=== PATIENT | female | born 1995 | race American Indian/Alaskan Native ===

== ENCOUNTER 2020-08-19 17:03 | Emergency (ER) | payer SELFPAY | END 2020-08-20 07:29 | LOC: ED 17:03 | DX: R11.2 Nausea with vomiting, unspecified (principal); Z53.21 Procedure and treatment not carried out due to patient leaving prior to being seen by health care provider ==

== ENCOUNTER 2021-06-04 06:21 | Emergency (ER) | payer SELFPAY ==
[2021-06-04] MEDS ORDERED: ONDANSETRON 4 MG ODT TAB PO ONE (06:28)
--- NOTE | 2021-06-04 06:29 | Emergency Department Report ---
ED Abdominal Pain HPI - General Stated Complaint: COUGH VOMITING SHAD Time Seen by Provider: 06/04/21 06:28 - History of Present Illness Initial Comments: Patient presents with a 1 to 2-day history of GI upset and nausea and vomiting. She has not been able to keep anything down for the last day. She denies hematemesis or coffee-ground emesis. She has vomited yellow stomach acid. She states that she called an ambulance yesterday and was told "do not go to the hospital. You will be fine." She states that this morning, she was not fine and decided to come here of her own accord. She does report having a cough producing brownish phlegm over the last day as well. She has no subjective fevers or chills. There is no diarrhea. She has no sick contacts. She has not been out of the country. Patient has not had any antibiotic exposure. - Related Data Previous Rx's Medication Instructions Recorded Last Taken Type Hyoscyamine Subl [Levsin Sl 0.125 0.125 mg SL Q6HR PRN #20 tab 06/04/21 Unknown Rx TAB] Ondansetron [Zofran ODT TAB] 8 mg PO Q8HR PRN #20 tab.rapdis 06/04/21 Unknown Rx Allergies Allergy/AdvReac Type Severity Reaction Status Date / Time No Known Allergies Allergy Unverified 06/04/21 06:51 ED Review of Systems ROS: Stated complaint: COUGH VOMITING SHAD Other details as noted in HPI Comment: All other systems reviewed and negative Constitutional: denies: fever Eyes: denies: eye pain ENT: denies: throat pain Respiratory: see HPI Cardiovascular: denies: chest pain Endocrine: denies: unexplained weight loss Gastrointestinal: as per HPI Genitourinary: denies: dysuria Musculoskeletal: denies: back pain Skin: denies: rash Neurological: denies: headache Hematological/Lymphatic: denies: easy bruising ED Past Medical Hx - Past Medical History Previous Medical History?: No - Family History Family history: no significant - Medications Home Medications: Home Medications Medication Instructions Recorded Confirmed Last Taken Type Hyoscyamine Subl [Levsin Sl 0.125 0.125 mg SL Q6HR PRN #20 tab 06/04/21 Unknown Rx TAB] Ondansetron [Zofran ODT TAB] 8 mg PO Q8HR PRN #20 tab.rapdis 06/04/21 Unknown Rx ED Physical Exam - General Limitations: No Limitations, Other (Pulse ox noted and normal) General appearance: alert, in no apparent distress - Head Head exam: Present: atraumatic, normocephalic - Eye Eye exam: Present: normal appearance, EOMI. Absent: scleral icterus - ENT ENT exam: Present: normal orophraynx, normal external ear exam - Neck Neck exam: Present: normal inspection. Absent: meningismus - Respiratory Respiratory exam: Present: normal lung sounds bilaterally. Absent: respiratory distress - Cardiovascular Cardiovascular Exam: Present: regular rate, normal rhythm - GI/Abdominal GI/Abdominal exam: Present: soft, tenderness (Mild epigastric). Absent: distended, guarding, rebound - Extremities Exam Extremities exam: Present: normal capillary refill - Back Exam Back exam: Absent: CVA tenderness (R), CVA tenderness (L) - Neurological Exam Neurological exam: Present: alert, oriented X3, CN II-XII intact, normal gait. Absent: motor sensory deficit - Psychiatric Psychiatric exam: Present: normal affect, normal mood - Skin Skin exam: Present: warm, dry ED Course Vital Signs 06/04/21 06:32 Temperature 98.4 F Pulse Rate 60 Respiratory 18 Rate Blood Pressure 137/71 [Right] O2 Sat by Pulse 97 Oximetry - Reevaluation(s) Reevaluation #1: 06/04/21 06:29 Labs and medications ordered. Old records noted. Reevaluation #2: 06/04/21 09:06 Labs are noted. Patient was discharged. ED Medical Decision Making - Lab Data Result diagrams: 06/04/21 07:26 06/04/21 07:26 - Medical Decision Making Patient presents with a cough and GI upset. Clinically, there is no evidence of hepatitis or pancreatitis. She does not appear to be septic or toxic. She is not so ectopic has been excluded. There is no distention or tympany to suggest bowel obstruction. Patient has no peritoneal finding. There is no focal tenderness over McBurney's point to suggest appendicitis. With the cough, she certainly could have coronavirus or some other viral infection. She was treated empirically for her symptoms and referred for outpatient evaluation. There was no indication that she has a bacterial infection. There are no adventitious breath sounds to suggest pneumonia. Critical Care Time: No Critical care attestation.: If time is entered above; I have spent that time in minutes in the direct care of this critically ill patient, excluding procedure time. ED Disposition Clinical Impression: Acute epigastric pain, Viral URI Nausea & vomiting Qualifiers: Vomiting type: unspecified Qualified Code(s): R11.2 - Nausea with vomiting, unspecified Disposition: 01 HOME / SELF CARE / HOMELESS Is pt being admited?: No Condition: Stable Instructions: Viral Respiratory Infection, [id number], Abdominal Pain, Adult, [id number]-[id number], Nausea and Vomiting, Adult Additional Instructions: Have a bland diet. Drink plenty water. Return for problems. Follow-up with your regular doctor for recheck and further management. Prescriptions: Hyoscyamine Subl [Levsin Sl 0.125 TAB] 0.125 mg SL Q6HR PRN #20 tab PRN Reason: abd pain Ondansetron [Zofran ODT TAB] 8 mg PO Q8HR PRN #20 tab.rapdis PRN Reason: Nausea Referrals: PRIMARY CARE,MD [Primary Care Provider] - 3-5 Days
[2021-06-04 07:43] LABS: Basophils # (Auto) 0.1 K/mm3 (0.0-0.1); Basophils % (Auto) 0.7 % (0.0-1.8); Eosinophils # (Auto) 0.2 K/mm3 (0.0-0.4); Eosinophils % (Auto) 2.6 % (0.0-4.3); Hematocrit 41.8 % (30.3-42.9); Hemoglobin 13.2 gm/dl (10.1-14.3); Lymphocytes # (Auto) 1.6 K/mm3 (1.2-5.4); Lymphocytes % (Auto) 18.1 % (13.4-35.0); Mean Corpuscular HGB Conc 32 % (30-34); Mean Corpuscular Volume 91 fl (79-97); Monocytes # (Auto) 0.4 K/mm3 (0.0-0.8); Monocytes % (Auto) 4.8 % (0.0-7.3); Platelet Count 289 K/mm3 (140-440); Red Blood Count 4.59 M/mm3 (3.65-5.03); Red Cell Distribution Width 14.3 % (13.2-15.2)
[2021-06-04 08:05] LABS: Alanine Aminotransferase 38 units/L (7-56); Albumin 4.5 g/dL (3.9-5); Blood Urea Nitrogen 9 mg/dL (7-17); Hemolysis Index 9
[2021-06-04 08:08] LABS: BUN/Creatinine Ratio 15
[2021-06-04] MEDS ORDERED: DICYCLOMINE 20 MG TAB PO ONE (08:56)
[2021-06-04 09:30] VITALS: BP 126/90
== END 2021-06-04 09:30 | disposition home or self-care (01) ==
LOC: ED 06:21
DX: J06.9 Acute upper respiratory infection, unspecified (principal); B97.89 Other viral agents as the cause of diseases classified elsewhere; R10.13 Epigastric pain
CPT/HCPCS: 36415; 80053; 83690; 84703; 85025; 99283; J3490; Q0162

== ENCOUNTER 2021-11-18 09:56 | Emergency (ER) | payer SELFPAY ==
[2021-11-18] MEDS ORDERED: ALBUTEROL 2.5 MG/3 ML NEBU IH ONE (11:33)
[2021-11-18] MEDS ORDERED: dexAMETHasone 4 MG/ML VIAL IV ONE (11:33)
[2021-11-18] MEDS ORDERED: ONDANSETRON 4 MG/2 ML INJ IV ONE (11:33)
[2021-11-18] MEDS ORDERED: SODIUM CHLORIDE 0.9% 500 ML 500 ML IV ONE (11:34)
[2021-11-18] MEDS ORDERED: ACETAMINOPHEN 500 MG TAB PO ONE (11:34)
--- NOTE | 2021-11-18 11:36 | Emergency Department Report ---
ED General Adult HPI - General Chief complaint: Adult Asthma Stated complaint: SHAD PUI?: Yes Time Seen by Provider: 11/18/21 11:20 Source: patient, EMS, RN notes reviewed Mode of arrival: Stretcher Limitations: Physical Limitation - History of Present Illness Initial comments: The patient was evaluated in the emergency department for symptoms described in the history of present illness. He/she was evaluated in the context of the global COVID-19 pandemic, which necessitated consideration that the patient might be at risk for infection with the virus that causes COVID-19. Institutional protocols and algorithms that pertain to the evaluation of patients at risk for COVID-19 are in a state of rapid change based on informat ion released by regulatory bodies including the CDC and federal and state organizations. These policies and algorithms were followed during the patient's care in the emergency department. Please note that these policies, procedures and recommendations changed on a rapid basis. This is a 26-year-old female who presents to the hospital today with EMS on day 4 of COVID symptoms. She endorses loss of taste and smell, cough, wheezing, shortness of breath, and diffuse myalgias and body pain. No dysuria. Patient reportedly hypoxic in the field to high 80s, low 90s. Symptoms are constant. Patient has received her COVID-19 vaccination, but not her booster. -: Gradual, days(s) Location: mouth, back, left, right, upper extremity, lower extremity Quality: aching Consistency: constant Improves with: rest Worsens with: movement - Related Data Previous Rx's Medication Instructions Recorded Last Taken Type Hyoscyamine Subl [Levsin Sl 0.125 0.125 mg SL Q6HR PRN #20 tab 06/04/21 Unknown Rx TAB] Ondansetron [Zofran ODT TAB] 8 mg PO Q8HR PRN #20 tab.rapdis 06/04/21 Unknown Rx Allergies Allergy/AdvReac Type Severity Reaction Status Date / Time No Known Allergies Allergy Verified 11/18/21 10:18 ED Review of Systems ROS: Stated complaint: SHAD Other details as noted in HPI Constitutional: malaise, weakness ENT: congestion Respiratory: cough, shortness of breath Cardiovascular: denies: syncope Gastrointestinal: diarrhea. denies: abdominal pain Genitourinary: denies: dysuria Musculoskeletal: back pain, arthralgia, myalgia Neurological: weakness Hematological/Lymphatic: denies: easy bleeding ED Past Medical Hx - Medications Home Medications: Home Medications Medication Instructions Recorded Confirmed Last Taken Type Hyoscyamine Subl [Levsin Sl 0.125 0.125 mg SL Q6HR PRN #20 tab 06/04/21 Unknown Rx TAB] Ondansetron [Zofran ODT TAB] 8 mg PO Q8HR PRN #20 tab.rapdis 06/04/21 Unknown Rx ED Physical Exam - General General appearance: alert, anxious, in distress - Head Head exam: Present: atraumatic, normocephalic - Eye Eye exam: Present: normal appearance, EOMI. Absent: nystagmus - ENT ENT exam: Present: normal exam, normal orophraynx, mucous membranes moist, normal external ear exam - Neck Neck exam: Present: normal inspection, full ROM. Absent: tenderness, meningismus - Respiratory Respiratory exam: Present: respiratory distress, accessory muscle use, other (Pulmonary auscultation not performed secondary to lack of disposable stethoscope.). Absent: stridor - Cardiovascular Cardiovascular Exam: Present: normal rhythm (Seen on property assessment monitor), tachycardia (Seen on property assessment monitor). Absent: systolic murmur, diastolic murmur, rubs, gallop - GI/Abdominal GI/Abdominal exam: Present: soft. Absent: distended, tenderness, guarding, rebound, rigid, pulsatile mass - Extremities Exam Extremities exam: Present: normal inspection, full ROM, other (2+ pulses noted in the bilateral upper and lower extremities. There is no palpable cord. negative Homans sign. Muscular compartments are soft. The pelvis is stable.). Absent: pedal edema, calf tenderness - Back Exam Back exam: Present: normal inspection. Absent: tenderness, CVA tenderness (R), CVA tenderness (L), paraspinal tenderness, vertebral tenderness - Neurological Exam Neurological exam: Present: alert, other (No facial droop. Tongue midline. Extraocular movements intact bilaterally. Facial sensation intact to light touch in V1, V2, V3 distribution bilaterally. 5 and a 5 strength in 4 extremities. Sensation intact to light touch in 4 extremities.) - Psychiatric Psychiatric exam: Present: anxious - Skin Skin exam: Present: warm, dry, intact, normal color. Absent: rash ED Course Vital Signs 11/18/21 11/18/21 11/18/21 10:16 10:18 11:02 Temperature 99.3 F Pulse Rate 114 H Pulse Rate [ Bilateral] Respiratory Rate [Bilateral ] Blood Pressure Blood Pressure 123/73 [Left] O2 Sat by Pulse 95 100 98 Oximetry 11/18/21 11/18/21 11/18/21 11:16 11:46 11:55 Temperature Pulse Rate Pulse Rate [ 90 Bilateral] Respiratory 18 Rate [Bilateral ] Blood Pressure 134/66 120/83 Blood Pressure [Left] O2 Sat by Pulse 97 97 Oximetry 11/18/21 11/18/21 11/18/21 12:31 12:45 13:01 Temperature Pulse Rate Pulse Rate [ Bilateral] Respiratory Rate [Bilateral ] Blood Pressure 144/77 137/70 113/68 Blood Pressure [Left] O2 Sat by Pulse 97 98 96 Oximetry 11/18/21 11/18/21 11/18/21 13:15 13:31 13:45 Temperature Pulse Rate Pulse Rate [ Bilateral] Respiratory Rate [Bilateral ] Blood Pressure 111/54 106/61 109/59 Blood Pressure [Left] O2 Sat by Pulse 96 96 98 Oximetry - Reevaluation(s) Reevaluation #1: 11/18/21 13:35 Differential diagnosis, include but not limited to: COVID-19, systemic inflammatory response syndrome, dehydration, acute hypoxic respiratory failure Assessment and plan: 26-year-old female, who was tachycardic, tachypneic and hypoxic, with prototypical COVID-19 symptoms, including loss of taste, loss of smell, cough, wheezing and shortness of breath. Patient requires 3 to 4 L of supplemental oxygen. Initiate IV fluids, and acetaminophen. Appreciate that patient is ruling in for systemic inflammatory response syndrome. Given propensity for COVID patients to develop acute respiratory distress syndrome, hold 30 cc/kg bolus of IV fluids. Initiate dexamethasone. Send appropriate laboratory studies and COVID labs. Recommend admission to the medical service for the aforementioned. The patient is agreeable to admission and hospitalization. Currently awaiting x-ray of the chest. We will discussed with hospital physician to arrange admission. 11/18/21 15:36 Dr Griffin Srivastava to admit to IMS x ray chest clear given high clinical suspicion for COVID-19, young age, lack of significant medical comorbidities, hold antibiotics at this time. ED Medical Decision Making - Lab Data Result diagrams: 11/18/21 11:45 11/18/21 11:45 Vital Signs 11/18/21 11/18/21 11/18/21 10:16 10:18 11:55 Temperature 99.3 F Pulse Rate 114 H Pulse Rate [ 90 Bilateral] Respiratory 18 Rate [Bilateral ] Blood Pressure 123/73 [Left] O2 Sat by Pulse 95 100 Oximetry Lab Results 11/18/21 11/18/21 11/18/21 Range/Units 11:45 11:45 11:45 WBC 16.4 H (4.5-11.0) K/mm3 RBC 4.64 (3.65-5.03) M/mm3 Hgb 14.5 H (10.1-14.3) gm/dl Hct 42.5 (30.3-42.9) % MCV 92 (79-97) fl MCH 31 (28-32) pg MCHC 34 (30-34) % RDW 13.9 (13.2-15.2) % Plt Count 228 (140-440) K/mm3 Lymph % (Auto) 4.9 L (13.4-35.0) % [place] % (Auto) 4.7 (0.0-7.3) % Eos % (Auto) 0.1 (0.0-4.3) % Baso % (Auto) 0.4 (0.0-1.8) % Lymph # (Auto) 0.8 L (1.2-5.4) K/mm3 [place] # (Auto) 0.8 (0.0-0.8) K/mm3 Eos # (Auto) 0.0 (0.0-0.4) K/mm3 Baso # (Auto) 0.1 (0.0-0.1) K/mm3 Seg Neutrophils % 89.9 H (40.0-70.0) % Seg Neutrophils # 14.7 H (1.8-7.7) K/mm3 PT 14.1 (12.2-14.9) Sec. INR 0.96 (0.87-1.13) APTT 27.9 (24.2-36.6) Sec. D-Dimer 250.77 H (0-234) ng/mlDDU Sodium 139 (137-145) mmol/L Potassium 3.5 L (3.6-5.0) mmol/L Chloride 103.4 (98-107) mmol/L Carbon Dioxide 19 L (22-30) mmol/L Anion Gap 20 mmol/L BUN 10 (7-17) mg/dL Creatinine 0.8 (0.6-1.2) mg/dL Estimated GFR > 60 ml/min BUN/Creatinine Ratio 13 % Glucose 124 H (65-100) mg/dL Lactic Acid (0.7-2.0) mmol/L Calcium 9.6 (8.4-10.2) mg/dL Magnesium 1.90 (1.7-2.3) mg/dL Ferritin (10.0-200.0) ng/mL Total Bilirubin 0.50 (0.1-1.2) mg/dL AST 25 (5-40) units/L ALT 23 (7-56) units/L Alkaline Phosphatase 58 (35-129) units/L Lactate Dehydrogenase 221 H (91-180) units/L Total Creatine Kinase 101 (30-135) units/L Troponin T < 0.010 (0.00-0.029) ng/mL Total Protein 7.7 (6.3-8.2) g/dL Albumin 4.9 (3.9-5) g/dL Albumin/Globulin Ratio 1.8 % HCG, Quant (0-4) mIU/mL 11/18/21 11/18/21 11/18/21 Range/Units 11:45 11:45 11:45 WBC (4.5-11.0) K/mm3 RBC (3.65-5.03) M/mm3 Hgb (10.1-14.3) gm/dl Hct (30.3-42.9) % MCV (79-97) fl MCH (28-32) pg MCHC (30-34) % RDW (13.2-15.2) % Plt Count (140-440) K/mm3 Lymph % (Auto) (13.4-35.0) % [place] % (Auto) (0.0-7.3) % Eos % (Auto) (0.0-4.3) % Baso % (Auto) (0.0-1.8) % Lymph # (Auto) (1.2-5.4) K/mm3 [place] # (Auto) (0.0-0.8) K/mm3 Eos # (Auto) (0.0-0.4) K/mm3 Baso # (Auto) (0.0-0.1) K/mm3 Seg Neutrophils % (40.0-70.0) % Seg Neutrophils # (1.8-7.7) K/mm3 PT (12.2-14.9) Sec. INR (0.87-1.13) APTT (24.2-36.6) Sec. D-Dimer (0-234) ng/mlDDU Sodium (137-145) mmol/L Potassium (3.6-5.0) mmol/L Chloride (98-107) mmol/L Carbon Dioxide (22-30) mmol/L Anion Gap mmol/L BUN (7-17) mg/dL Creatinine (0.6-1.2) mg/dL Estimated GFR ml/min BUN/Creatinine Ratio % Glucose (65-100) mg/dL Lactic Acid 3.00 H* (0.7-2.0) mmol/L Calcium (8.4-10.2) mg/dL Magnesium (1.7-2.3) mg/dL Ferritin 101.4 (10.0-200.0) ng/mL Total Bilirubin (0.1-1.2) mg/dL AST (5-40) units/L ALT (7-56) units/L Alkaline Phosphatase (35-129) units/L Lactate Dehydrogenase (91-180) units/L Total Creatine Kinase (30-135) units/L Troponin T (0.00-0.029) ng/mL Total Protein (6.3-8.2) g/dL Albumin (3.9-5) g/dL Albumin/Globulin Ratio % HCG, Quant 3.57 (0-4) mIU/mL - EKG Data 11/18/21 13:34 The EKG is interpreted at 12: 19 Sinus tachycardia, rate 133 bpm. Normal axis, normal P wave axis, QTC 4 8 3 ms, motion artifact. This is an abnormal EKG. This is not a. - Radiology Data Radiology results: pending, report reviewed, image reviewed XR chest 1V ap INDICATION / CLINICAL INFORMATION: Dyspnea covid symptoms COMPARISON: None available. FINDINGS: SUPPORT DEVICES: None. HEART / MEDIASTINUM: No significant abnormality. LUNGS / PLEURA: Lungs are clear. Costophrenic sulci are sharp. No pneumothorax. ADDITIONAL FINDINGS: No significant additional findings. IMPRESSION: 1. No acute findings. Signer Name: Alfredo Childress MD Signed: 11/18/2021 1:10 PM Workstation Name: Virtual 3-[employer] for [employer] Critical Care Time: Yes Critical care time in (mins) excluding proc time.: 35 Critical care attestation.: If time is entered above; I have spent that time in minutes in the direct care of this critically ill patient, excluding procedure time. ED Disposition Clinical Impression: Suspected COVID-19 virus infection, Acute respiratory failure with hypoxia Disposition: ADMITTED INPATIENT Is pt being admited?: Yes Does the pt Need Aspirin: No Condition: Serious
[2021-11-18 13:00] LABS: INR 0.96 (0.87-1.13); Partial Thromboplastin Time 27.9 Sec. (24.2-36.6)
[2021-11-18 13:05] LABS: Basophils # (Auto) 0.1 K/mm3 (0.0-0.1); Basophils % (Auto) 0.4 % (0.0-1.8); Eosinophils % (Auto) 0.1 % (0.0-4.3); Hematocrit 42.5 % (30.3-42.9); Hemoglobin 14.5 gm/dl (10.1-14.3); Lymphocytes # (Auto) 0.8 K/mm3 (1.2-5.4); Lymphocytes % (Auto) 4.9 % (13.4-35.0); Mean Corpuscular HGB Conc 34 % (30-34); Mean Corpuscular Volume 92 fl (79-97); Monocytes # (Auto) 0.8 K/mm3 (0.0-0.8); Monocytes % (Auto) 4.7 % (0.0-7.3); Platelet Count 228 K/mm3 (140-440); Red Blood Count 4.64 M/mm3 (3.65-5.03); Red Cell Distribution Width 13.9 % (13.2-15.2)
[2021-11-18 13:14] LABS: Alanine Aminotransferase 23 units/L (7-56); Albumin 4.9 g/dL (3.9-5); BUN/Creatinine Ratio 13; Blood Urea Nitrogen 10 mg/dL (7-17); Calcium 9.6 mg/dL (8.4-10.2); Hemolysis Index 6
[2021-11-18 13:31] LABS: HCG,Quantitative 3.57 mIU/mL (0-4)
[2021-11-18 14:12] VITALS: BP 109/59
--- NOTE | 2021-11-18 14:15 | XRay Report ---
XR chest 1V ap INDICATION / CLINICAL INFORMATION: Dyspnea covid symptoms COMPARISON: None available. FINDINGS: SUPPORT DEVICES: None. HEART / MEDIASTINUM: No significant abnormality. LUNGS / PLEURA: Lungs are clear. Costophrenic sulci are sharp. No pneumothorax. ADDITIONAL FINDINGS: No significant additional findings. IMPRESSION: 1. No acute findings. Signer Name: Alfredo Childress MD Signed: 11/18/2021 2:10 PM Workstation Name: [employer]
[2021-11-18 16:45] LABS: C-Reactive Protein 5.4 mg/dL (0.00-1.30)
--- NOTE | 2021-11-18 20:51 | History and Physical Report ---
History of Present Illness Date of examination: 11/18/21 History of present illness: This is a 26-year-old female who presents to the hospital today with EMS on day 4 of COVID symptoms. She endorses loss of taste and smell, cough, wheezing, shortness of breath, and diffuse myalgias and body pain. No dysuria. Patient reportedly hypoxic in the field to high 80s, low 90s. Symptoms are constant. Patient has received her COVID-19 vaccination, but not her booster. -: Gradual, days(s) Location: mouth, back, left, right, upper extremity, lower extremity Quality: aching Consistency: constant Improves with: rest Worsens with: movement - Related Data Previous Rx's Medication Instructions Recorded Last Taken Type Hyoscyamine Subl [Levsin Sl 0.125 0.125 mg SL Q6HR PRN #20 tab 06/04/21 Unknown Rx TAB] Ondansetron [Zofran ODT TAB] 8 mg PO Q8HR PRN #20 tab.rapdis 06/04/21 Unknown Rx Allergies Allergy/AdvReac Type Severity Reaction Status Date / Time No Known Allergies Allergy Verified 11/18/21 10:18 - Medications Home Medications: Home Medications Medication Instructions Recorded Confirmed Last Taken Type Hyoscyamine Subl [Levsin Sl 0.125 0.125 mg SL Q6HR PRN #20 tab 06/04/21 Unknown Rx TAB] Ondansetron [Zofran ODT TAB] 8 mg PO Q8HR PRN #20 tab.rapdis 06/04/21 Unknown Rx Review of Systems ROS: Stated complaint: SHAD Other details as noted in HPI Constitutional: malaise, weakness ENT: congestion Respiratory: cough, shortness of breath Cardiovascular: denies: syncope Gastrointestinal: diarrhea. denies: abdominal pain Genitourinary: denies: dysuria Musculoskeletal: back pain, arthralgia, myalgia Neurological: weakness Hematological/Lymphatic: denies: easy bleeding Medications and Allergies Allergies Allergy/AdvReac Type Severity Reaction Status Date / Time No Known Allergies Allergy Verified 11/18/21 10:18 Home Medications Medication Instructions Recorded Confirmed Last Taken Type Hyoscyamine Subl [Levsin Sl 0.125 0.125 mg SL Q6HR PRN #20 tab 06/04/21 Unknown Rx TAB] Ondansetron [Zofran ODT TAB] 8 mg PO Q8HR PRN #20 tab.rapdis 06/04/21 Unknown Rx Exam - Constitutional Vitals: Temp Pulse Resp BP Pulse Ox 99.3 F 90 18 109/59 98 11/18/21 10:16 11/18/21 11:55 11/18/21 11:55 11/18/21 13:45 11/18/21 13:45 HEART Score - HEART Score Troponin: Troponin T < 0.010 ng/mL (0.00-0.029) 11/18/21 11:45 Results - Labs CBC & Chem 7: 11/18/21 11:45 11/18/21 15:55 Labs: Laboratory Last Values WBC 16.4 K/mm3 (4.5-11.0) H 11/18/21 11:45 RBC 4.64 M/mm3 (3.65-5.03) 11/18/21 11:45 Hgb 14.5 gm/dl (10.1-14.3) H 11/18/21 11:45 Hct 42.5 % (30.3-42.9) 11/18/21 11:45 MCV 92 fl (79-97) 11/18/21 11:45 MCH 31 pg (28-32) 11/18/21 11:45 MCHC 34 % (30-34) 11/18/21 11:45 RDW 13.9 % (13.2-15.2) 11/18/21 11:45 Plt Count 228 K/mm3 (140-440) 11/18/21 11:45 Lymph % (Auto) 4.9 % (13.4-35.0) L 11/18/21 11:45 [place] % (Auto) 4.7 % (0.0-7.3) 11/18/21 11:45 Eos % (Auto) 0.1 % (0.0-4.3) 11/18/21 11:45 Baso % (Auto) 0.4 % (0.0-1.8) 11/18/21 11:45 Lymph # (Auto) 0.8 K/mm3 (1.2-5.4) L 11/18/21 11:45 [place] # (Auto) 0.8 K/mm3 (0.0-0.8) 11/18/21 11:45 Eos # (Auto) 0.0 K/mm3 (0.0-0.4) 11/18/21 11:45 Baso # (Auto) 0.1 K/mm3 (0.0-0.1) 11/18/21 11:45 Seg Neutrophils % 89.9 % (40.0-70.0) H 11/18/21 11:45 Seg Neutrophils # 14.7 K/mm3 (1.8-7.7) H 11/18/21 11:45 PT 14.1 Sec. (12.2-14.9) 11/18/21 11:45 INR 0.96 (0.87-1.13) 11/18/21 11:45 APTT 27.9 Sec. (24.2-36.6) 11/18/21 11:45 D-Dimer 504.07 ng/mlDDU (0-234) H 11/18/21 15:55 Sodium 139 mmol/L (137-145) 11/18/21 11:45 Potassium 3.5 mmol/L (3.6-5.0) L 11/18/21 11:45 Chloride 103.4 mmol/L (98-107) 11/18/21 11:45 Carbon Dioxide 19 mmol/L (22-30) L 11/18/21 11:45 Anion Gap 20 mmol/L 11/18/21 11:45 BUN 10 mg/dL (7-17) 11/18/21 11:45 Creatinine 0.8 mg/dL (0.6-1.2) 11/18/21 11:45 Estimated GFR > 60 ml/min 11/18/21 11:45 BUN/Creatinine Ratio 13 % 11/18/21 11:45 Glucose 157 mg/dL (65-100) H 11/18/21 15:55 Lactic Acid 6.80 mmol/L (0.7-2.0) H* 11/18/21 15:55 Calcium 9.6 mg/dL (8.4-10.2) 11/18/21 11:45 Magnesium 1.90 mg/dL (1.7-2.3) 11/18/21 11:45 Ferritin 102.6 ng/mL (10.0-200.0) 11/18/21 15:55 Total Bilirubin 0.50 mg/dL (0.1-1.2) 11/18/21 11:45 AST 25 units/L (5-40) 11/18/21 11:45 ALT 23 units/L (7-56) 11/18/21 11:45 Alkaline Phosphatase 58 units/L (35-129) 11/18/21 11:45 Lactate Dehydrogenase 239 units/L (91-180) H 11/18/21 15:55 Total Creatine Kinase 101 units/L (30-135) 11/18/21 11:45 Troponin T < 0.010 ng/mL (0.00-0.029) 11/18/21 11:45 C-Reactive Protein 5.40 mg/dL (0.00-1.30) H 11/18/21 15:55 Total Protein 7.7 g/dL (6.3-8.2) 11/18/21 11:45 Albumin 4.9 g/dL (3.9-5) 11/18/21 11:45 Albumin/Globulin Ratio 1.8 % 11/18/21 11:45 Procalcitonin 0.05 ng/mL (<0.15) 11/18/21 11:45 HCG, Quant 3.57 mIU/mL (0-4) 11/18/21 11:45 Microbiology: Microbiology 11/18/21 11:45 Peripheral/Venous Blood Culture - Preliminary Culture in Progress 11/18/21 11:45 Peripheral/Venous Blood Culture - Preliminary Culture in Progress
[2021-11-18] MEDS ORDERED: ACETAMINOPHEN 325 MG TAB PO PRN (20:53)
[2021-11-18] MEDS ORDERED: ONDANSETRON 4 MG/2 ML INJ IV PRN (20:53)
[2021-11-18] MEDS ORDERED: oxyCODONE /ACETAMINOPHEN 5-325MG TAB PO PRN (20:54)
[2021-11-18] MEDS ORDERED: AZITHROMYCIN/NS 500 MG/250 ML 500 MG/250 ML BAG IV SCH (21:00)
[2021-11-18] MEDS ORDERED: SODIUM CHLORIDE 0.9% 1000 ML 1,000 ML IV SCH (21:00)
[2021-11-18] MEDS ORDERED: ENOXAPARIN 40 MG/0.4 ML INJ SUB-Q SCH (21:00)
[2021-11-18] MEDS ORDERED: cefTRIAXone/NS 2 GM/100 ML 2 GM/100 ML BAG IV SCH (21:00)
[2021-11-18] MEDS ORDERED: dexAMETHasone 4 MG/ML VIAL IV SCH (22:00)
--- NOTE | 2021-11-19 10:27 | Electrocardiograph Report ---
[facility] Test Date: 2021-11-18 Test Time: 12:19:14 Pat Name: KAILYN LIEBERMAN Department: Room: Gender: F [employer] Operator: [birth year] : 1995 Requested By: DEIRDRE HEADLEY Order Number: [id number] Reading MD: Toan Belcher Measurements Intervals [place] Rate: 133 P: 76 ID: [id number] QRS: 66 QRSD: 76 T: -74 QT: 325 QTc: 483 Interpretive Statements Sinus tachycardia Nonspecific T abnormalities, inferior leads No previous ECG available for comparison Electronically Signed On 11-19-2021 10:27:15 EDT by Toan Belcher
== END 2021-11-18 17:14 | disposition left against medical advice (07) ==
LOC: ED 09:56
DX: J96.01 Acute respiratory failure with hypoxia (principal); Z20.822 Contact with and (suspected) exposure to COVID-19; Z79.899 Other long term (current) drug therapy
CPT/HCPCS: 36415; 71045; 80053; 82140; 82550; 82728; 82947; 83615; 83735; 84145; 84484; 84702; 85025; 85379; 85610; 85730; 86140; 87040; 93005; 94640; 96374; 96375; 99291; J1100; J2405; J7040; 94644; 99284